=== PATIENT | male | born 1985 | race Caucasian/White ===

== ENCOUNTER → 2022-09-22 | Outpatient (CLI) | payer BC, OTHER, SELFPAY ==
--- NOTE | 2022-09-22 17:12 | RAD_ITS ---
STUDY: X-RAY - SOFT TISSUE NECK REASON FOR EXAM: Male, 36 years old. ACUTE NECK PAIN TECHNIQUE: 2 view(s) of the neck were obtained. COMPARISON: None. FINDINGS: Normal visualized nasopharynx, oropharynx, hypopharynx. Normal epiglottis. Normal visualized subglottic tracheal air column. Normal prevertebral soft tissue structures. Loss of the normal cervical lordosis. Mild degree of disc space narrowing and spondylosis at the C4-C5 and C5-C6 level. The soft tissue structures are unremarkable. RAD/Neck for Soft Tissue IMPRESSION: Degenerative changes of the cervical spine. Loss of the normal cervical lordosis. Electronically Signed: Carloz Veliz MD at 11:01 EDT ,
== END | disposition home or self-care (01) ==
PROVIDERS: PCP Family Medicine; Referring Provider Family Medicine; Visit Provider Family Medicine
DX: M54.2 Cervicalgia (principal)
CPT/HCPCS: 70360